=== PATIENT | male | born 1980 | race Asian ===

== ENCOUNTER 2017-06-04 08:32 | Emergency (ER) | payer OTHER ==
[2017-06-04 08:40] VITALS: BP 137/89
--- NOTE | 2017-06-04 08:56 | ED.ADGEN ---
Adult General HPI HPI Patient is a 36-year-old man, with no significant past history, who presents to the emergency department with complaint of right lower extremity pain. Patient states that for 5 weeks ago, he was training for a half marathon, when he came back for a run and experienced pain in the medial aspect of his right lower extremity, just above and slightly anterior to the ankle. He denies any discrete injury, states that he contacted the nurse line, was told that he might have "a stress fracture", he states that he was instructed to avoid running, and instead focused on rolling and using the elliptical. He states that the pain resolved, and patient yesterday ran the [employer] [employer]. He states that around mile 3 he started to experience discomfort in the same region , but was able to complete the race. He states that he took ibuprofen prior to the race and last night, states that today he has been in able to weight bear at all on this side due to pain. He describes the pain as located in the medial tibial region, above the ankle, radiating to the mid calf region, and down to the dorsum of the foot, which is described as a sort of "numb and tingly feeling ". He denies again any discrete injury or twisting, noted to have mild swelling , otherwise has full range of motion. Denies any knee pain, any pain in the left lower extremity, any shortness breath, chest pain, back pain, flank pain, urinary or other complaints. Review of Systems Review of Systems Constitutional: Denies fever or chills [] Eyes: Denies change in visual acuity, redness, or eye pain [] HENT: Denies nasal congestion or sore throat [] Respiratory: Denies cough or shortness of breath [] Cardiovascular: No additional information not addressed in HPI [] GI: Denies abdominal pain, nausea, vomiting, bloody stools or diarrhea [] : Denies dysuria or hematuria [] Musculoskeletal: Denies back pain, complaining of pain in the medial aspect of the right lower extremity. Integument: Denies rash or skin lesions [] Neurologic: Denies headache, focal weakness or sensory changes [] Endocrine: Denies polyuria or polydipsia [] Current Medications Current Medications Current Medications Medications (Trade) Dose Ordered Sig/Angel Start Time Stop Time Status Last Admin Dose Admin Naproxen (Naprosyn) 500 mg 1X ONCE 06/04/17 09:00 06/04/17 09:01 UNV 06/04/17 09:10 500 MG Allergies Allergies Allergies Coded Allergies Type Severity Reaction Last Updated Verified No Known Drug Allergies 06/04/17 No Physical Exam Physical Exam Constitutional: Well developed, well nourished, no acute distress, non-toxic appearance. [] HENT: Normocephalic, atraumatic, bilateral external ears normal, oropharynx moist, no oral exudates, nose normal. [] Eyes: PERRLA, EOMI, conjunctiva normal, no discharge. [] Neck: Normal range of motion, no tenderness, supple, no stridor. [] Cardiovascular:Heart rate regular rhythm, no murmur, S1, S2, no rubs or gallops. [] Lungs & Thorax: Bilateral breath sounds clear to auscultation, no wheezing, rhonchi, rales. No chest or crepitus or tenderness. [] Abdomen: Bowel sounds normal, soft, no tenderness, no masses, no pulsatile masses. [] Skin: Warm, dry, no erythema, no rash. [] Back: No tenderness, no CVA tenderness. [] Extremities: Patient with mild swelling noted of the medial aspect of the right lower extremity just above the ankle, there is no point tenderness of the medial malleolus or lateral malleolus, patient with mild point tenderness along the medial aspect of the tibia, no sternal signs of trauma, no lesions, patient with less than 2 seconds capillary refill, when compared to left lower extremity , mild swelling noted as stated, no other significant abnormalities identified. , no cyanosis, no clubbing, ROM intact, no edema. Patient unable to weight-bear secondary to pain. [] Neurologic: Alert and oriented X 3, normal motor function, normal sensory function, no focal deficits noted. [] Psychologic: Affect normal, judgement normal, mood normal. [] Current Patient Data Vital Signs Vital Signs Date Time Temp Pulse Resp B/P (MAP) Pulse Ox O2 Delivery O2 Flow Rate FiO2 06/04/17 08:40 98.0 77 16 97 EKG EKG Not indicated.[] Radiology/Procedures Radiology/Procedures [][address] [address] IMAGING REPORT Signed PATIENT: SYLVIA RIVERA ACCOUNT: [id number] : 1980 LOCATION: ER AGE: 36 SEX: M EXAM STATUS: REG ER ORD. PHYSICIAN: PARKER VALLE DO REASON: Pain PROCEDURE: ANKLE RIGHT 3V Three-view right ankle radiographs 06/04/2017 Clinical history: Right ankle pain after running. AP, lateral and oblique digital radiographs of the right ankle were obtained. The right ankle mortise is intact. No fracture or dislocation is seen. No degenerative changes are noted. There is no radiographic evidence of a joint effusion. Impression: Negative study. DICTATED AND SIGNED BY: VIDHYA LEOS MD DATE: 06/04/17918 CC: PARKER VALLE DO; PCP,UNKNOWN ~ Impressions: [place] [address] IMAGING REPORT Signed PATIENT: SYLVIA RIVERA ACCOUNT: [id number] : 1980 LOCATION: ER AGE: 36 SEX: M EXAM STATUS: REG ER ORD. PHYSICIAN: PARKER VALLE DO REASON: Pain PROCEDURE: TIBIA FIBULA RIGHT AP and lateral right tibia and fibula radiographs 06/04/2017 Clinical history: Right lower leg pain post running. AP and lateral digital radiographs of the right tibia and fibula were obtained. No fracture or dislocation is seen. No significant degenerative changes are noted. Impression: Negative study. DICTATED AND SIGNED BY: VIDHYA LEOS MD DATE: 06/04/17917 CC: PARKER VALLE DO; PCP,UNKNOWN ~ Course & Med Decision Making Course & Med Decision Making Pertinent Labs and Imaging studies reviewed. (See chart for details) Examination reveals mild swelling and tenderness, discussed with patient use of NSAIDs, ice pack in the ED, and x-ray of the ankle and tib-fib. Patient is not previously received imaging or evaluation for this discomfort, which is stated did become present approximate 5 weeks ago. X-rays of ankle and tib-fib did not reveal any evidence of bony abnormalities or other concerning findings. I did discuss findings with patient, as he is unable to weight-bear comfortably, will place [place] wrap, and use crutches for comfort and assistance with ambulation. Patient received crutch training ED without issue. Discussed with patient that additional evaluation of his primary care provider and potential referral to orthopedics for additional evaluation and imaging would be beneficial, patient [place]. Patient instructed to continue ice, rest, elevation, and avoidance of aggravating potential injury until he is able to follow-up. Patient voiced understanding and agreement with follow-up medication instructions and precautions, discharged from the emergency department in stable condition with plan and precautions as above. Final Impression Final Impression [] Problems: Dragon Disclaimer Dragon Disclaimer This electronic medical record was generated, in whole or in part, using a voice recognition dictation system. Departure: Impression: Primary Impression: Pain of right lower extremity Disposition: 01 HOME, SELF-CARE Condition: IMPROVED PARKER VALLE DO Jun 04, 2017 08:56
[2017-06-04] MEDS ORDERED: NAPROXEN 500 MG TABLET PO ONE (09:00)
--- NOTE | 2017-06-04 09:21 | RAD ---
AP and lateral right tibia and fibula radiographs 06/04/2017 Clinical history: Right lower leg pain post running. AP and lateral digital radiographs of the right tibia and fibula were obtained. No fracture or dislocation is seen. No significant degenerative changes are noted. Impression: Negative study.
--- NOTE | 2017-06-04 09:22 | RAD ---
Three-view right ankle radiographs 06/04/2017 Clinical history: Right ankle pain after running. AP, lateral and oblique digital radiographs of the right ankle were obtained. The right ankle mortise is intact. No fracture or dislocation is seen. No degenerative changes are noted. There is no radiographic evidence of a joint effusion. Impression: Negative study.
== END 2017-06-04 09:44 | disposition home or self-care (01) ==
LOC: ER 08:32
DX: M79.661 Pain in right lower leg (principal); X50.9XXA Other and unspecified overexertion or strenuous movements or postures, initial encounter; Y93.02 Activity, running; Y99.8 Other external cause status; Y92.89 Other specified places as the place of occurrence of the external cause
CPT/HCPCS: 73590; 73610; 99284